=== PATIENT | male | born 2000 | race Hispanic/Latino ===

== ENCOUNTER 2022-06-11 00:56 | Emergency (ER) | payer BC ==
[2022-06-11] MEDS ORDERED: HYDROcodone/Acetaminophen 10/325 mg Tablet ONE (03:03)
== END 2022-06-11 03:10 | disposition home or self-care (01) ==
LOC: ERS 00:56
DX: S39.012A Strain of muscle, fascia and tendon of lower back, initial encounter (principal); M46.1 Sacroiliitis, not elsewhere classified; X58.XXXA Exposure to other specified factors, initial encounter
CPT/HCPCS: 99283